=== PATIENT | male | born 1965 | race African-American/Black ===

== ENCOUNTER 2023-05-24 06:31 | Day surgery (SDC) | payer OTHER ==
[2023-05-23 14:53] LABS: HEMOGLOBIN 11.3 g/dL (13-16.00); MEAN CELL VOLUME 79.1 fL (80.0-100.00); MEAN CORPUSCULAR HEMOGLOBIN 25.5 pg (27.00-32.0); MEAN CORPUSCULAR HGB CONC 32.2 g/dl (32.0-36.0); PLATELET COUNT 257 K/uL (150-450); RED BLOOD COUNT 4.43 M/uL (4.00-6.00); RED CELL DISTRIBUTION WIDTH 13.9 % (11.5-14.5)
[~2023-05-24] VITALS: Ht 170.2 cm; Wt 77.1 kg
[~2023-05-24 06:31] MED LIST: Hyzaar 100-12.5 Tablet PO; NORVASC 5MG TAB PO
== END 2023-05-24 18:50 | disposition home or self-care (01) ==
LOC: CIR.AMB 06:31
PROVIDERS: ATTEND Orthopaedic Surgery Hand Surgery
DX: S42.412A Displaced simple supracondylar fracture without intercondylar fracture of left humerus, initial encounter for closed fracture (principal); Z20.822 Contact with and (suspected) exposure to COVID-19; E11.9 Type 2 diabetes mellitus without complications; E78.00 Pure hypercholesterolemia, unspecified; I10 Essential (primary) hypertension
CPT/HCPCS: 24545; L8699